=== PATIENT | female | born 1975 | race Caucasian/White ===

== ENCOUNTER 2022-10-20 15:23 | Emergency (ER) | payer OTHER ==
[2022-10-20 16:01] VITALS: BP 142/83; PULSE 86; RESP 14; TEMP 98.2; BMI 34.0
== END 2022-10-20 16:55 | disposition home or self-care (01) ==
LOC: JERFT 15:23
DX: M79.671 Pain in right foot (principal); M79.672 Pain in left foot; M72.2 Plantar fascial fibromatosis
CPT/HCPCS: 99281-25

== ENCOUNTER 2023-03-14 21:21 | Emergency (ER) | payer BC, OTHER ==
[2023-03-14 21:26] VITALS: BP 136/86; PULSE 88; RESP 20; TEMP 99; BMI 31.9
[2023-03-14] MEDS ORDERED: ALBUTEROL SO4 HFA INHALER IH ONE ×2 (23:17→23:27)
[2023-03-14] MEDS ORDERED: guaiFENesin/D-METHORPHAN HB 10 ML UNIT-DOSE CUPS PO ONE (23:17)
[2023-03-14] MEDS ORDERED: predniSONE 20 MG TABLET (UD) PO ONE (23:17)
[2023-03-14] MEDS ORDERED: predniSONE 20 MG TABLET (UD) ONE (23:27)
[2023-03-14] MEDS ORDERED: guaiFENesin/D-METHORPHAN HB 10 ML UNIT-DOSE CUPS ONE (23:27)
== END 2023-03-14 23:44 | disposition home or self-care (01) ==
LOC: JERFT 21:21
PROC: 3E0F7GC Introduction of Other Therapeutic Substance into Respiratory Tract, Via Natural or Artificial Opening (ICD-10-PCS; principal; 2023-03-14)
DX: R50.9 Fever, unspecified (principal); R05.9 Cough, unspecified; R09.81 Nasal congestion; R53.83 Other fatigue; J40 Bronchitis, not specified as acute or chronic; J10.1 Influenza due to other identified influenza virus with other respiratory manifestations; Z20.822 Contact with and (suspected) exposure to COVID-19
CPT/HCPCS: 0241U-QW; 71046-TC-FY; 87651; 99284-25